=== PATIENT | female | born 1975 | race Caucasian/White ===

== ENCOUNTER 2016-05-08 20:27 | Emergency (ER) | payer SELFPAY ==
[~2016-05-08] VITALS: Ht 157.5 cm; Wt 69.2 kg
[~2016-05-08 20:27] MED LIST: ACET325T33 PO; ACYC800T57 PO; BENZ100C70 PO; CEPH500C PO; CYCL-319 PO; D-ME473S18 PO; DIAZ-90 PO; FLUC150T17 PO; FLUT9.9S NASAL; HYDR-3498 PO; HYDR-906 PO; IBUP-1542 PO; IBUP800T25 PO; LIDO30JE8 MM; OMEP20CA9 PO; PRED20TA PO; PSEU30TA38 PO; TRAM50TA2 PO
[2016-05-08 20:55] VITALS: Ht 157.5 cm; Wt 69.2 kg
== END 2016-05-08 22:16 | disposition left against medical advice (07) ==
LOC: FTE 20:27
DX: Z53.21 Procedure and treatment not carried out due to patient leaving prior to being seen by health care provider (principal)

== ENCOUNTER 2016-05-11 19:04 | Emergency (ER) | payer BC ==
[~2016-05-11] VITALS: Ht 157.5 cm; Wt 68.6 kg
[2016-05-11 19:30] VITALS: Ht 157.5 cm; Wt 68.6 kg
--- NOTE | 2016-05-11 20:43 | EN ---
Date/Time of Note Date/Time of Note DATE: 05/11/16 TIME: 20:41 ER Progress Note This is a 40-year-old female who has been here numerous times before for back pain presenting to the ER complaining of neck to lower back pain with numbness and tingling of right leg, stating the pain is most in her thoracic region. Patient has been here in November for thoracic pain in which a thoracic XRAY has been and showed: 1. S-shaped scoliosis of the thoracolumbar spine as described above. 2. No evidence for acute fractures or traumatic subluxations. 3. Mild thoracic kyphosis and mild spondylosis with mild mid degenerative endplate and disk space height loss. Patient has also had cervical and lumbosacral XRs in the past that were unremarkable Patient was evaluated RME and will be sent to ER to for pain medications. ADRIAN PATINO PA-C May 11, 2016 20:43
[2016-05-11] MEDS ORDERED: KETOROLAC 60 MG INJ IM STA (21:51)
[2016-05-11] MEDS ORDERED: predniSONE 20 MG TAB PO ONE (22:00)
[2016-05-11] MEDS ORDERED: PRED20TA PO (22:32)
[2016-05-11] MEDS ORDERED: TRAM50TA2 PO (22:32)
[2016-05-11] MEDS ORDERED: ONDANSETRON (ODT) 4 MG TAB ODT STA (22:42)
[2016-05-11] MEDS ORDERED: ONDA4TAB14 PO (22:43)
[2016-05-11 22:49] VITALS: BP 130/81; PULSE 60; RESP 18; TEMP 98.1
--- NOTE | 2016-06-16 06:24 | ERD ---
ER Documentation Chief Complaint Date/Time DATE: 06/16/16 TIME: 06:20 Chief Complaint lower back pain radiating to right leg x 3 days. no recent injury HPI 41-year-old female is brought into the emergency department with her family for lower back pain on the right side that radiates to her right leg for the past 3 days. Pain is worse with standing, better with sitting, she denies any saddle anesthesia, loss of bowel bladder function, fevers, trauma. ROS All systems reviewed and are negative except as per history of present illness. Medications Home Meds Active Scripts Ondansetron (Ondansetron Odt) 4 Mg Tab.rapdis, 4 MG PO Q6H Y for NAUSEA AND/OR VOMITING, #10 TAB Prov:REJI OCONNOR PA-C 05/11/16 Tramadol HCl (Tramadol HCl) 50 Mg Tablet, 50 MG PO Q4 Y for PAIN, #20 TAB Prov:REJI OCONNOR PA-C 05/11/16 Prednisone* (Prednisone*) 20 Mg Tab, 40 MG PO DAILY for 4 Days, TAB Prov:REJI OCONNOR PA-C 05/11/16 Tramadol HCl (Tramadol HCl) 50 Mg Tablet, 50 MG PO Q4 Y for PAIN, #20 TAB Prov:CROW IRVING PA-C 01/16/16 Acyclovir* (Zovirax*) 800 Mg Tablet, 800 MG PO BID for 5 Days, TAB Prov:CROW IRVING PA-C 01/16/16 Fluconazole* (Diflucan*) 150 Mg Tablet, 150 MG PO ONCE, #1 TAB Prov:GABRIEL SCOTT 01/15/16 Cephalexin* (Cephalexin*) 500 Mg Capsule, 500 MG PO Q8, #21 CAP Prov:GABRIEL SCOTT DO 01/15/16 Hydrocodone/Acetaminophen ([place] 5-325 Tablet) 1 Each Tablet, 1 EACH PO Q6, #8 TAB Prov:GABRIEL SCOTT 01/15/16 Lidocaine Hcl (Lidocaine Hcl) 30 Ml Jel, 30 ML MM TID, #1 Prov:GABRIEL SCOTT DO 01/15/16 Pseudoephedrine Hcl* (Pseudoephedrine Hcl*) 30 Mg Tablet, 30 MG PO Q6 Y for CONGESTION, #30 TAB Prov:CROW IRVINGC 01/06/16 Fluticasone Propionate (Flonase Allergy Relief) 9.9 Ml [place].susp, 1 SPRAY NASAL DAILY, #1 BOTTLE TO EACH NOSTRIL Prov:CROW IRVING PA-C 01/06/16 Acetaminophen* (Tylenol*) 325 Mg Tablet, 1 TAB PO Q6 Y for PAIN AND OR ELEVATED TEMP, #20 TAB Prov:CROW IRVING PA-C 01/06/16 Dextromethorphan Hb-Promethazine Hcl (Promethazine DM Syrup) 473 Ml Syrup, 5 ML PO Q6 Y for COUGH, #100 ML Prov:CROW IRVING PA-C 01/06/16 Benzonatate* (Tessalon Perle*) 100 Mg Capsule, 100 MG PO Q8H Y for COUGH, #30 CAP Prov:CROW IRVING PA-C 01/06/16 Diazepam* (Valium*) 5 Mg Tablet, 5 MG PO Q8 for MUSCLE SPASMS, #10 TAB Prov:ADRIAN PATINO PA-C 11/21/15 Ibuprofen* (Motrin*) 600 Mg Tab, 600 MG PO Q6H Y for PAIN AND OR ELEVATED TEMP, #30 TAB Prov:ADRIAN PATINO PA-C 11/21/15 Ibuprofen* (Motrin*) 600 Mg Tab, 600 MG PO Q6, #20 TAB Prov:REJI OCONNOR PA-C 03/06/15 Hydrocodone Bit-Acetaminophen* ([place]*) 5-325 Mg Tab, 1 TAB PO Q6 Y for PAIN, # 10 TAB Prov:REJI OCONNOR PA-C 03/06/15 Omeprazole* (Prilosec*) 20 Mg Capsule.dr, 20 MG PO DAILY, #7 CAP Prov:GABRIEL SCOTT 02/17/15 Ibuprofen* (Ibuprofen*) 800 Mg Tab, 800 MG PO TID, #14 TAB Prov:GABRIEL SCOTT DO 02/17/15 Cyclobenzaprine Hcl* (Cyclobenzaprine Hcl*) 10 Mg Tablet, 10 MG PO TID, #14 TAB Prov:GABRIEL SCOTT 02/17/15 Prednisone* (Prednisone*) 20 Mg Tab, 40 MG PO DAILY for 4 Days, TAB Prov:GABRIEL SCOTT DO 02/17/15 Hydrocodone Bit-Acetaminophen* ([place]*) 5-325 Mg Tab, 1 TAB PO Q6 Y for PAIN, # 10 TAB Prov:GABRIEL SCOTT DO 02/17/15 Ibuprofen* (Motrin*) 600 Mg Tab, 600 MG PO Q6, #30 TAB Prov:CROW IRVING PA-C 12/08/14 Acetaminophen* (Tylenol*) 325 Mg Tablet, 2 TAB PO Q8 Y for PAIN AND OR ELEVATED TEMP, #20 TAB Prov:CROW IRVING PA-C 12/08/14 Allergies Allergies: Coded Allergies: No Known Allergy (Verified , 05/11/16) PMhx/Soc History of Surgery: Yes (hysterectomy, cholecystectomy, l wrist, hernia, pancreas sx) Anesthesia Reaction: No Hx Neurological Disorder: No Hx Respiratory Disorders: Yes (asthma) Hx Cardiac Disorders: No Hx Psychiatric Problems: No Hx Miscellaneous Medical Probl: Yes (HERNIATED DISC; BACK PROBLEM) Hx Alcohol Use: No Hx Substance Use: No Hx Tobacco Use: No Smoking Status: Never smoker Physical Exam Vitals Review nursing notes Physical Exam General: Well-developed, well-nourished. The patient appears in no acute distress. HEENT: Head is normocephalic, atraumatic. No scleral icterus. Neck: Supple. Nontender. Lungs: Clear to auscultation. Normal air movement. Heart: Regular rate and rhythm. S1 and S2 are normal. No murmurs, gallops, or rubs. Abdomen: Soft, nontender, nondistended. Bowel sounds are normoactive. Back: No midline tenderness, full ROM with back flexion. strength to LE 5/5 bilaterally. Extremities: No clubbing or cyanosis. Normal pulses. Moving extremities x 4. No weakness. Neurologic: Alert and oriented 3. No focal deficits. Skin: Normal turgor. No rash or lesions. Results 24 hrs Current Medications Medications (Trade) Dose Ordered Sig/Justice Route PRN Reason Start Time Stop Time Status Last Admin Dose Admin Ketorolac Tromethamine (Toradol) 60 mg ONCE STAT IM 05/11/16 21:51 05/11/16 21:53 DC 05/11/16 22:13 Prednisone (Prednisone) 40 mg ONCE ONCE PO 05/11/16 22:00 05/11/16 22:01 DC 05/11/16 22:13 Ondansetron HCl (Zofran Odt) 8 mg ONCE STAT ODT 05/11/16 22:42 05/11/16 22:43 DC 05/11/16 22:47 Procedures/MDM 41-year-old female presents to the emergency department with acute exacerbation of chronic low back pain. Clinical examination shows sciatica type symptoms however no signs of compression, neurologic injury, cauda equina, epidural abscess, epidural hematoma. She was given tramadol, and prednisone in the emergency department. She developed some nausea which was alleviated with Zofran, she feels much better at this time and is comfortable being discharged. Departure Diagnosis: Primary Impression: Back pain Condition: Good Patient Instructions: Back Pain W/ Sciatica Additional Instructions: Llame al doctor BETHANY y alicia derick SHANA PARA DENTRO DE 1-2 HODGES.Dgale a la secretaria que nosotros le instruimos hacer esta shana.Avise o llame si shaikh condicin se empeora antes de la shana. Regresa aqui si peor o no mejor. Your patient was seen in the emergency department for chronic back pain, I believe that the patient can further benefit from seeing a back specialist. Please evaluate, and consider a referral to see a criminal research specialist. REJI OCONNOR PA-C Jun 16, 2016 06:23
== END 2016-05-11 23:15 | disposition home or self-care (01) ==
LOC: FTE 19:04
DX: M54.5 Low back pain (principal); J45.909 Unspecified asthma, uncomplicated
CPT/HCPCS: J1885; J7512; Z7610; 96372

== ENCOUNTER 2016-10-15 19:56 | Emergency (ER) | payer BC ==
[~2016-10-15] VITALS: Ht 160 cm; Wt 70.0 kg
[~2016-10-15 19:56] MED LIST changes: +ONDA4TAB14 PO
[2016-10-15 19:59] VITALS: Ht 160 cm; Wt 70.0 kg
[2016-10-15] MEDS ORDERED: FAMOTIDINE 20 MG INJ IV STA (20:10)
[2016-10-15] MEDS ORDERED: ALBUTEROL 0.083% (NEB) 2.5 MG/3 ML AMP INH STA (20:10)
[2016-10-15] MEDS ORDERED: SOD CHLORIDE 0.9% 1,000 ML IV STA (20:10)
[2016-10-15] MEDS ORDERED: IPRATROPIUM (NEB) 0.5 MG/2.5 ML AMP INH STA (20:10)
[2016-10-15] MEDS ORDERED: EPINEPHrine 1 MG INJ IM STA (20:10)
[2016-10-15] MEDS ORDERED: METHYLPREDNISOLONE 125 MG INJ IV STA (20:10)
[2016-10-15] MEDS ORDERED: DIPHENHYDRAMINE 50 MG INJ IV STA (20:10)
[2016-10-15] MEDS ORDERED: ERGO500037 PO (21:02)
[2016-10-15] MEDS ORDERED: PANT40TA4 PO (21:03)
[2016-10-15] MEDS ORDERED: FLUT200B INHALATION (21:03)
[2016-10-15] MEDS ORDERED: LORA10TA3 PO (21:03)
[2016-10-15] MEDS ORDERED: ALBU18HF INHALATION (21:04)
[2016-10-15] MEDS ORDERED: PRED20TA PO (22:10)
[2016-10-15] MEDS ORDERED: EPIN0.3P4 INJ (22:39)
[2016-10-15 22:43] VITALS: BP 115/66; PULSE 80; RESP 20; TEMP 98.5
--- NOTE | 2016-10-18 13:33 | ERD ---
DATE OF SERVICE: 10/18/2016 CHIEF COMPLAINT: Bee sting. HISTORY OF PRESENT ILLNESS: This is a 41-year-old female with a known history of hypertension who presents to the emergency department after she sustained a single bee sting on her tongue roughly 20 minutes prior to arrival. The patient indicates she has experienced a bee sting in the past that developed into a systemic anaphylactic reaction several years prior to arrival. Therefore, the patient immediately came to the emergency department as she noticed a sensation as though her throat was closing up with difficulty in breathing. Her daughter drove her to the hospital after she scraped and removed the remnant of the stinger at the site of envenomation on the patient's tongue. The patient did not take any medication prior to arrival. She states she felt as though there was swelling of the tongue at the site of the envenomation. The patient denied any nausea, vomiting, diarrhea, or abdominal pain. She denied any palpitations. The patient indicates she has no underlying immune disease such as vasculitis, nephrosis, serum sickness, or encephalitis in the past from prior history or unusual reaction to the patient's previous bee sting several years prior to arrival. PAST MEDICAL HISTORY: Hypertension. PAST SURGICAL HISTORY: None. ALLERGIES: NO KNOWN ALLERGIES TO MEDICATIONS. SOCIAL HISTORY: Denies tobacco, ETOH, or illicit drug use. REVIEW OF SYSTEMS: All 12 systems were reviewed and are in the History of Present Illness. PHYSICAL EXAMINATION: VITAL SIGNS: Blood pressure is 173/85; respiratory rate is 20; pulse rate 74. Temperature is 98.5 and pulse ox is 100 percent on room air. CONSTITUTIONAL: A well-developed, well-nourished female, not in acute respiratory distress but did appear anxious. HEENT: Normocephalic, atraumatic. Moist mucus membranes. No exudates oropharynx. No pooling of secretions within the oropharynx. No angioedema. No macroglossia. Very mild swelling on the distal tip of the right tongue with no remnant of stingers from the bee sting as this had been scraped off by the daughter. She has a very mild abrasion at the envenomation site of the tongue. Uvula was midline. NECK: Supple. No masses, no tenderness. No nuchal rigidity. RESPIRATORY: The patient was speaking in full, complete sentences. No stridor. Not using accessory muscles of respiration. No wheezing auscultation bilaterally and lungs were clear to ausculation bilaterally. CARDIOVASCULAR: Regular rate, regular rhythm. S1, S2 are normal. No murmurs are appreciated. Distal pulses are palpable, 2+ bilaterally. Capillary refill less than 2 seconds. GASTROINTESTINAL: Abdomen soft, nontender, nondistended. Bowel sounds are constant. No abdominal masses or bruits. MUSCULOSKELETAL: Patient had full range of motion in the upper and lower extremities bilaterally. Muscle tone was normal. SKIN: Warm, dry with no cyanosis, , no petechia, no purpura. No diffuse erythema. No urticaria. NEUROLOGICAL: The patient is alert, awake, oriented x3. There were no focal neurological deficits. DIAGNOSTIC TESTING INTERPRETATIONS: Pulse oximeter was normal. There was no evidence of hypoxemia. The patient was satting 100 percent on room air. MEDICAL DECISION MAKING: This patient was seen and evaluated by me and had presented to the emergency department with an injection of Hymenoptera venom to the patient's tongue. The patient had presented to the emergency department with her daughter, and her daughter indicated she had a history of a systemic reaction, which included anaphylaxis, several years prior to arrival after a bee sting to the patient's upper extremity. Therefore, given that the patient has a history of a systemic reaction with no evidence of a systemic reaction that had yet occurred, the patient was treated aggressively and, therefore, immediately placed on a electronic device monitor, continuous pulse oximetry, and IV access had been established nursing staff. The patient received a liter bolus of 0.9 normal saline, treated with diphenhydramine intervenously, as well as inhaled beta agonist being albuterol. The patient was given 125 mg of Solu-Medrol as well as subcutaneous epinephrine 0.3 mg of 03/999 dilution. The patient remained in the emergency department for an observation period of over 4 hours. The patient had no evidence of a systemic anaphylactic reaction during this time. Her airway was intact with no shortness of breath, stridor, or wheezing. She had no gastrointestinal complaints of nausea, vomiting, or abdominal pain. She was not tachycardic, and there was no urticaria, pruritis, or flushing that the patient had experienced. She has no family history of diabetes or hypertension and, again, no family history or personal history of an immune response such as serum sickness, vasculitis, or encephalitis. The patient appeared to have a type 1 hypersensitivity reaction to the Hymenoptera venom but, again, no airway compromise. The removal of the remnant of the stinger at the site envenomation had been scraped off by her daughter. After the patient had been treated with epinephrine, antihistamine, and no evidence of hypertension, I did spreader box operator that the patient could be safely discharged home with strict instructions to return to the emergency department immediately if her symptoms were to worsen. She will followup with her primary care physician. The patient was given a prescription for EpiPen. patient discharged home in fair condition. OVERALL CLINICAL IMPRESSION: 1. Bee sting. 2. Type 1 hypersensitivity reaction. Dictated By: Maya Arellano MD /maral/reynaldo /Document#: [id number]
== END 2016-10-15 22:54 | disposition home or self-care (01) ==
LOC: E/R 19:56
DX: T63.441A Toxic effect of venom of bees, accidental (unintentional), initial encounter (principal); I10 Essential (primary) hypertension
CPT/HCPCS: 94664; J0171; J1200; J2930; J7030; Z7610; 96372; 96374; 96375

== ENCOUNTER 2017-06-09 13:43 | Emergency (ER) | END 2017-06-09 16:55 | disposition home or self-care (01) ==

== ENCOUNTER 2018-01-07 22:58 | Emergency (ER) | END 2018-01-08 01:14 | disposition home or self-care (01) ==

== ENCOUNTER 2018-03-17 09:24 | Emergency (ER) | payer BC ==
[~2018-03-17] VITALS: Ht 160 cm; Wt 72.9 kg
[~2018-03-17 09:24] MED LIST changes: -ACET325T33 PO; -ACYC800T57 PO; +ALBU18HF INHALATION; -BENZ100C70 PO; -CEPH500C PO; -CYCL-319 PO; -D-ME473S18 PO; -DIAZ-90 PO; +EPIN0.3P4 INJ; +ERGO500013 PO; -FLUC150T17 PO; +FLUT200B INHALATION; -HYDR-3498 PO; +HYDR-4011 PO; -HYDR-906 PO; -IBUP800T25 PO; -LIDO30JE8 MM; +LORA10TA3 PO; +NAPR-985 PO; -OMEP20CA9 PO; -ONDA4TAB14 PO; +PANT40TA4 PO; -PSEU30TA38 PO; -TRAM50TA2 PO
[2018-03-17 09:26] VITALS: Ht 160 cm; Wt 72.9 kg
[2018-03-17] MEDS ORDERED: ONDANSETRON 4 MG INJ IV STA (09:37)
[2018-03-17] MEDS ORDERED: KETOROLAC 30 MG INJ IV STA (09:37)
[2018-03-17] MEDS ORDERED: LIDOCAINE/MYLANTA 40 ML BTL PO ONE (10:00)
[2018-03-17] MEDS ORDERED: ONDA4TAB14 PO (10:55)
[2018-03-17 12:24] VITALS: BP 128/70; PULSE 70; RESP 17
--- NOTE | 2018-03-17 13:00 | ERD ---
ER Documentation Chief Complaint Chief Complaint abdominal pain x 1 week HPI Patient is a 42-year-old female with asthma who presents with abdominal pain. She has abdominal pain and feels distended. She has epigastric pain. She has nausea and vomiting as well. She said that she had a bowel movement last night. She has no fevers. She tried omeprazole. Upon review of old medical records the patient has multiple visits for various complaints including similar abdominal pain. Her primary doctor is Dr. Zuleyka Hidalgo. ROS All systems reviewed and are negative except as per history of present illness. Medications Home Meds Active Scripts Ondansetron (Ondansetron Odt) 4 Mg Tab.rapdis, 4 MG PO Q6H PRN for NAUSEA AND/OR VOMITING, #10 TAB Prov:HAVEN BARRETO MD 03/17/18 Naproxen* (Naprosyn*) 500 Mg Tablet, 500 MG PO BID PRN for PAIN AND/OR INFLAM MATION, #30 TAB Prov:BARBARA JUNIOR PA-C 01/08/18 Ibuprofen* (Motrin*) 600 Mg Tab, 600 MG PO Q6, #20 TAB Prov:DILLON SPENCE MD 06/09/17 Hydrocodone/Acetaminophen ([place] 5-325 Tablet) 1 Each Tablet, 1 TAB PO Q6H PRN for PAIN, #14 TAB Prov:DILLON SPENCE MD 06/09/17 Epinephrine (Epipen 2-Дмитрий) 0.3 Mg/0.3 Ml Pen.injctr, 1 EA INJ ONCE PRN for ALLERGIC REACTION, #1 EA Prov:TERESA LUIS MD 10/15/16 Prednisone* (Prednisone*) 20 Mg Tab, 60 MG PO DAILY for 5 Days, TAB Prov:TERESA LUIS MD 10/15/16 Fluticasone Propionate (Flonase Allergy Relief) 9.9 Ml [place].susp, 1 SPRAY NASAL DAILY, #1 BOTTLE TO EACH NOSTRIL Prov:CROW IRVING PA-C 01/06/16 Reported Medications Albuterol Sulfate* (Ventolin HFA*) 18 Gm Hfa.aer.ad, 2 PUFF INHALATION Q6H, #1 INHALER 10/15/16 Fluticasone Furoate (Arnuity Ellipta) 200 Mcg Blst.w.dev, 200 MCG INHALATION DAILY, #1 INHALER 10/15/16 Pantoprazole* (Pantoprazole*) 40 Mg Tablet.dr, 40 MG PO DAILY, TAB 10/15/16 Loratadine* (Loratadine*) 10 Mg Tablet, 10 MG PO DAILY, #30 TAB 10/15/16 Ergocalciferol (Vitamin D2) (VITAMIN D2) 50,000 Unit Capsule, 61602 UNIT PO Q7D, CAP 10/15/16 Allergies Allergies: Coded Allergies: No Known Allergy (Verified , 06/09/17) PMhx/Soc History of Surgery: Yes (gall bladder removed, hernia , tubal ligation) Anesthesia Reaction: No Hx Neurological Disorder: No Hx Respiratory Disorders: Yes (hx asthma) Hx Cardiac Disorders: No Hx Psychiatric Problems: No Hx Miscellaneous Medical Probl: Yes (pancreatitis) Hx Alcohol Use: No Hx Substance Use: No Hx Tobacco Use: No Smoking Status: Never smoker FmHx Family History: diabetes Physical Exam Vitals Vital Signs Date Temp Pulse Resp B/P (MAP) Pulse Ox O2 O2 Flow FiO2 Time Delivery Rate 03/17/18 70 17 128/70 100 Room Air 12:24 (89) 03/17/18 58 17 127/81 100 Room Air 10:36 (96) 03/17/18 97.7 74 18 123/77 97 09:26 (92) Physical Exam Const: No acute distress Head: Atraumatic Eyes: Normal Conjunctiva ENT: Normal External Ears, Nose and Mouth. Neck: Full range of motion. No meningismus. Resp: Clear to auscultation bilaterally Cardio: Regular rate and rhythm, no murmurs Abd: Soft, midepigastric tenderness to palpation without rebound or guarding Skin: No petechiae or rashes Back: No midline or flank tenderness Ext: No cyanosis, or edema Neur: Awake and alert Psych: Normal Mood and Affect Result Diagram: 03/17/1845 03/17/1845 Results 24 hrs Laboratory Tests Test 03/17/18 09:45 White Blood Count 6.4 10^3/ul Red Blood Count 4.25 10^6/ul Hemoglobin 12.6 g/dl Hematocrit 37.2 % Mean Corpuscular Volume 87.5 fl Mean Corpuscular Hemoglobin 29.6 pg Mean Corpuscular Hemoglobin Concent 33.9 g/dl Red Cell Distribution Width 11.6 % Platelet Count 245 10^3/UL Mean Platelet Volume 10.1 fl Immature Granulocytes % 0.300 % Neutrophils % 63.0 % Lymphocytes % 28.4 % Monocytes % 5.0 % Eosinophils % 2.7 % Basophils % 0.6 % Nucleated Red Blood Cells % 0.0 /100WBC Immature Granulocytes # 0.020 10^3/ul Neutrophils # 4.0 10^3/ul Lymphocytes # 1.8 10^3/ul Monocytes # 0.3 10^3/ul Eosinophils # 0.2 10^3/ul Basophils # 0.0 10^3/ul Nucleated Red Blood Cells # 0.0 10^3/ul Urine Color YELLOW Urine Clarity SLIGHTLY CLOUDY Urine pH 5.0 Urine Specific [place] 1.018 Urine Ketones NEGATIVE mg/dL Urine Nitrite NEGATIVE mg/dL Urine Bilirubin NEGATIVE mg/dL Urine Urobilinogen NEGATIVE mg/dL Urine Leukocyte Esterase NEGATIVE Wagner/ul Urine Microscopic RBC 0 /HPF Urine Microscopic WBC 0 /HPF Urine Squamous Epithelial Cells FEW /HPF Urine Bacteria FEW /HPF Urine Mucus FEW /HPF Urine Hemoglobin NEGATIVE mg/dL Urine Glucose NEGATIVE mg/dL Urine Total Protein NEGATIVE mg/dl Sodium Level 138 mmol/L Potassium Level 4.1 mmol/L Chloride Level 107 mmol/L Carbon Dioxide Level 25 mmol/L Anion Gap 6 Blood Urea Nitrogen 14 mg/dl Creatinine 0.62 mg/dl Est Glomerular Filtrat Rate mL/min > 60 mL/min Glucose Level 108 mg/dl Calcium Level 9.6 mg/dl Total Bilirubin 0.2 mg/dl Direct Bilirubin 0.00 mg/dl Indirect Bilirubin 0.2 mg/dl Aspartate Amino Transf (AST/SGOT) 24 IU/L Alanine Aminotransferase (ALT/SGPT) 22 IU/L Alkaline Phosphatase 81 IU/L Total Protein 7.4 g/dl Albumin 4.1 g/dl Globulin 3.30 g/dl Albumin/Globulin Ratio 1.24 Lipase 92 U/L Current Medications Medications Dose Sig/Justice Start Time Status Last (Trade) Ordered Route PRN Stop Time Admin Dose Reason Admin Ondansetron 4 mg ONCE STAT 03/17/18 DC 03/17/18 HCl (Zofran IV 09:37 09:52 Inj) 03/17/18 09:38 Ketorolac 30 mg ONCE STAT 03/17/18 DC 03/17/18 Tromethamine IV 09:37 09:51 (Toradol) 03/17/18 09:38 40 ml ONCE ONCE 03/17/18 DC 03/17/18 Miscellaneous PO 10:00 09:51 Medication 03/17/18 (Gi Cocktail 10:01 (2)) Procedures/MDM Patient is a 42-year-old female who presents with abdominal pain. Laboratory studies were normal. Lipase is normal. LFTs are normal. test is negative. At this point I doubt cholecystitis, pancreatitis, appendicitis, or bowel obstruction. She has had her gallbladder removed previously. She can return for any worsening symptoms. She should follow-up with her primary doctor within 24-48 hours for reevaluation. Departure Diagnosis: Primary Impression: Abdominal pain Abdominal location: epigastric Qualified Codes: R10.13 - Epigastric pain Condition: Fair Patient Instructions: Abdominal Pain Referrals: Dr. Zuleyka Hidalgo Additional Instructions: Llame al doctor MAANA y alicia derick SHANA PARA DENTRO DE 1-2 HODGES.Dgale a la secretaria que nosotros le instruimos hacer esta shana.Avise o llame si shaikh condicin se empeora antes de la shana. Regresa aqui si peor o no mejor. HAVEN BARRETO MD Mar 17, 2018 13:00
== END 2018-03-17 12:24 | disposition home or self-care (01) ==
LOC: E/R 09:24
DX: R10.13 Epigastric pain (principal); J45.909 Unspecified asthma, uncomplicated; R11.2 Nausea with vomiting, unspecified
CPT/HCPCS: 36415; 80053; 81001; 83690; 85025; 96374; 96375; J1885; J2405; Z7502; Z7610; 81003